=== PATIENT | male | born 1980 | race Two or more races ===

== ENCOUNTER 2019-06-06 08:00 | Outpatient (CLI) | payer BC ==
[2019-06-06 12:30] LABS: BASOPHILS # (AUTO) 0.1 10^3/uL (0.0-0.1); BASOPHILS % (AUTO) 0.8 %; EOSINOPHILS # (AUTO) 0.4 10^3/uL (0.0-0.7); EOSINOPHILS % (AUTO) 5.1 %; HGB - HEMOGLOBIN 13.5 g/dL (14.0-18.0); LYMPHOCYTES # (AUTO) 2.5 10^3/uL (1.5-3.5); MEAN CORPUSCULAR VOLUME 93.8 fL (80.0-94.0); MEAN PLATELET VOLUME 12.1 fL (7.4-11.4); MONOCYTES # (AUTO) 0.6 10^3/uL (0.0-1.0); MONOCYTES % (AUTO) 7.7 %; NEUTROPHILS # (AUTO) 3.8 10^3/uL (1.5-6.6); NEUTROPHILS % (AUTO) 52.1 %; PLT - PLATELET COUNT 214 10^3/uL (130-450); RED BLOOD COUNT 4.65 10^6/uL (4.70-6.10); WHITE BLOOD COUNT 7.3 x10^3/uL (4.8-10.8)
[2019-06-06 12:34] LABS: ALBUMIN 4.4 g/dL (3.2-5.5); ALBUMIN/GLOBULIN RATIO 1.3 (1.0-2.2); ALKALINE PHOSPHATASE 55 IU/L (42-121); ALT ALANINE AMINOTRANSFERASE 22 IU/L (10-60); AST ASPARTATE AMINOTRANSFERASE 24 IU/L (10-42); BILIRUBIN,TOTAL 0.9 mg/dL (0.2-1.0); BUN - BLOOD UREA NITROGEN 13 mg/dL (6-20); CALCIUM 9.2 mg/dL (8.5-10.3); CARBON DIOXIDE - CO2 28 mmol/L (21-32); CHLORIDE 103 mmol/L (101-111); CHOL/HDL RATIO 5.2 (<5.0); CHOLESTEROL 191 mg/dL; CREATININE 1.1 mg/dL (0.6-1.2); GFR - MDRD 75 (>89); GLUCOSE 96 mg/dL (70-100); HDL CHOLESTEROL 37 mg/dL; LDL CHOLESTEROL,CALCULATED 133 mg/dL; LDL/HDL RATIO 3.6 (<3.6); SODIUM 140 mmol/L (135-145); TOTAL PROTEIN 7.9 g/dL (6.7-8.2); VLDL CHOLESTEROL 21 mg/dL
== END 2019-06-06 23:59 | disposition home or self-care (01) ==
LOC: LAB.WCP 08:00
PROVIDERS: ATTEND Family Medicine
DX: Z00.00 Encounter for general adult medical examination without abnormal findings (principal); R03.0 Elevated blood-pressure reading, without diagnosis of hypertension; E66.9 Obesity, unspecified
CPT/HCPCS: 36415; 80053; 80061; 83721; 84443; 85025

== ENCOUNTER 2023-05-04 10:43 | Outpatient (CLI) | payer BC ==
--- NOTE | 2023-05-04 11:24 | Sleep Patient Instructions ---
Sleep Center Visit Summary - Patient Visit Information Reason for Visit: Initial consult for evaluation of sleep disordered breathing and other sleep issues. - Patient Instructions Instructions Attached: Sleep Study, Sleep Clinic Visit, Sleep Study Home Monitor Additional Instructions: You will be completing a sleep study, either an in-lab polysomnography (PSG) or home sleep study (HST). You will follow-up in the sleep care office after the sleep study is completed to hear the results and talk about therapy, if needed. You will be called by our office staff to schedule this appointment, but you may contact us with any questions. - Clinic Information Contact: [facility] [address] [place] [address] [email or web address] T: [phone]
--- NOTE | 2023-05-04 11:29 | SLEEP CARE CONSULTATION ---
Information from patient questionnaire entered by Suze Lombardo. I have reviewed and concur with the information entered by Suze Lombardo. This document represents the service I personally performed and the decisions made by me, Lesia Toribio ARNP. History of Present Illness Service Date and Time: 05/04/2023 1043 Reason for Visit: New patient, Previously diagnosed sleep apnea Chief Complaint: reports: Insomnia, Unrefreshed sleep, Snoring, Excessive daytime sleepiness, Observed pauses in breathing, Fatigue Date of Onset: 10-15YRS Usual bedtime: RANDOM, tries to lay down at 9 PM Time it takes to fall asleep: 01-60MINS Snores at night: Yes Observed to quit breathing while asleep: Yes Sleeps alone due to snoring: No Number of times waking at night: 0 Reasons for waking at night: reports: Choking, Snoring, Other (NOISE, light sleeper). denies: Gasping for air Toss, Turn, or Twitch while sleeping: No Recalls having dreams: Yes Usually gets out of bed at: 8812-5905 M-F; weekends is random Feels refreshed in the morning: No (sometimes he can) Morning headache: Yes (when sleeps for more than 8 hours; once a week on avg/weekend) Sleepy or fatigued during the day: Yes Ever fallen asleep while driving: Yes (drowsy driving, no accidents; pulls over if drowsy) Takes day naps: Yes (2 times a week for 30 minutes) Dreams during day naps: Yes Prior sleep studies: Yes Year and Where: 2020 [facility] Type of Sleep Study: Home sleep study Additional HPI information: I had the pleasure of seeing FREDO CHOW today regarding the possibility of him having a sleep disorder. He has had a previous sleep study dated 06/29/2021 which showed mild JOB with an AHI of 10.5 through [facility]. His current complaints are excessive daytime sleepiness, fatigue, insomnia, observed pauses in breathing, snoring and unrefreshed sleep. He was resent by his doctor because his blood pressure is elevated even on medications. He states he goes to sleep at random times, he will either fall asleep quickly or it may take several hours to go to sleep. He may sometimes be up for 36-48 hours before being able to go to sleep. He will then sleep on weekends for 18 hours. He lays down at 9 pm at night. He gets really sleepy after eating and will sometimes avoid eating at work to reduce sleepiness. He states once he was talking with people at work and he like "breathed out snoring" like when asleep. He has experienced multiple times of drowsy driving. 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 Patient is and lives in [place]. Have you smoked in the past 12 months: No Alcohol use: Yes Alcohol amount and frequency: 1-3, 2-3 TIMES A YEAR Caffeine use: Yes Caffeine amount and frequency: 2-4 DAILY Family History Family history of sleep disordered breathing: Yes Family Hx Sleep Apnea: Father: Snoring, Sleep apnea - Untreated, Grandparent: Snoring, Sleep apnea - Untreated Allergies and Home Medications Known drug allergies: No Drug allergies reviewed: Yes Home medication list reviewed: Yes Allergy and home medication list: Allergies No Known Drug Allergies Allergy (Verified 05/04/23 10:59) Home Medications Losartan Potassium See Rx Instructions .ROUTE .COMPLEX 05/04/23 [History] Metoprolol Succinate [Toprol Xl] See Rx Instructions .ROUTE .COMPLEX 05/04/23 [History] Review of Systems Weight gain over past 5 years: 30 Cardiovascular: reports: high blood pressure, chest pain, leg or foot swelling Respiratory: reports: sputum production Gastrointestinal: denies: heartburn Neurological: denies: headaches Psychiatric: reports: depression, mood disorder Ear/Nose/Throat: reports: nasal congestion, sinus problems, nose bleeds, wisdom teeth removed. denies: tonsillectomy Endocrine: reports: sluggishness Musculoskeletal: reports: joint pain, back pain Immunologic: reports: itching Physical Exam Vital signs obtained and entered by: SUZE Mendez MA Blood Pressure: 134/92 (LEFT ARM) Cuff size: long Heart Rate: 71 O2 Saturation: 94 Height: 6 ft 4 in Weight: 327 lb 9.6 oz Body Mass Index: 39.9 BMI Classification: Obese Neck circumference: 19 Mouth and throat: narrow oropharynx Soft palate: long Hard palate: normal Uvula: normal Uvula visualization: 0% Mallampati Class IV Tongue: enlarged in size with teeth hurst on lateral edges Tonsils: 1+ Neck: normal w/o lymphadenopathy or thyromegaly Heart: regular rate and rhythm Lungs: clear bilaterally Impression and Plan 1. Suspected Obstructive Sleep Apnea-Hypopnea Syndrome, as previously diagnosed and as still suggested by a history of loud and irregular snoring, observed cessation of breath while asleep, choking in sleep, morning headache, unrefreshed sleep, and excessive daytime sleepiness. He was told his sleep apnea was borderline and was not placed on treatment. His symptoms of daytime sleepiness and fatigue are worsening and his blood pressure is not well controlled. I recommend proceeding to polysomnography to confirm the diagnosis and to assess severity. If the patient has significant sleep disordered breathing, a manual CPAP titration study will also be performed to find the optimal treatment pressure. I informed the patient of what the sleep studies involve and after some discussion, obtained agreement to proceed. The pathophysiology of obstructive sleep apnea-hypopnea syndrome was discussed with the patient and health risks of cardiovascular and cerebrovascular disease if not treated. Risks of drowsy driving discussed in detail and patient advised to avoid long distance driving and to well puller head at the first sign of drowsiness. Patient agreed to plan. * Schedule polysomnography. * Avoid long distance driving or driving when feeling sleepy. * Avoid alcohol, sedative and muscle relaxant around bedtime. * Attempt to lose weight. * Review instructions provided by trained office staff on how to prepare for the sleep study. * Return for follow-up after sleep study completed. Counseling Topics: Weight loss health impact Visit Type: In Office Time Spent with Patient (minutes): 32 Provider Statement: I spent 100% of the Face to Face Visit with the patient with greater than 50% spent counseling the patient and coordination of care.
[2023-05-04 11:33] VITALS: BP 134/92; O2SAT 94
== END 2023-05-04 10:44 | disposition home or self-care (01) ==
LOC: SC 10:43
PROVIDERS: ATTEND Nurse Practitioner Family
DX: G47.33 Obstructive sleep apnea (adult) (pediatric) (principal)
CPT/HCPCS: 99203; 99212

== ENCOUNTER 2023-06-17 20:24 | Outpatient (CLI) | payer BC | END 2023-06-17 20:25 | disposition home or self-care (01) | LOC: SC 20:24 | PROVIDERS: ATTEND Nurse Practitioner Family | DX: G47.33 Obstructive sleep apnea (adult) (pediatric) (principal); E66.9 Obesity, unspecified; Z68.39 Body mass index [BMI] 39.0-39.9, adult | CPT/HCPCS: 95810 ==

== ENCOUNTER 2023-07-20 14:50 | Outpatient (CLI) | payer BC ==
[2023-07-20 17:56] LABS: BASOPHILS % (AUTO) 0.5 %; EOSINOPHILS # (AUTO) 0.2 10^3/uL (0.0-0.7); EOSINOPHILS % (AUTO) 2.4 %; HCT - HEMATOCRIT 44.1 % (42.0-52.0); HGB - HEMOGLOBIN 13.9 g/dL (14.0-18.0); LYMPHOCYTES # (AUTO) 2.2 10^3/uL (1.5-3.5); LYMPHOCYTES % (AUTO) 27.3 %; MEAN CORPUSCULAR HEMOGLOBIN 30.6 pg (27.0-31.0); MEAN CORPUSCULAR HGB CONC 31.5 g/dL (32.0-36.0); MEAN CORPUSCULAR VOLUME 97.1 fL (80.0-94.0); MEAN PLATELET VOLUME 12.1 fL (7.4-11.4); MONOCYTES # (AUTO) 0.6 10^3/uL (0.0-1.0); MONOCYTES % (AUTO) 7.5 %; NEUTROPHILS # (AUTO) 4.9 10^3/uL (1.5-6.6); PLT - PLATELET COUNT 262 10^3/uL (130-450); RED BLOOD COUNT 4.54 10^6/uL (4.70-6.10); RED CELL DISTRIBUTION WIDTH 12.5 % (12.0-15.0); WHITE BLOOD COUNT 7.9 x10^3/uL (4.8-10.8)
[2023-07-20 18:11] LABS: ALBUMIN 4.6 g/dL (3.2-5.5); ALBUMIN/GLOBULIN RATIO 1.7 (1.0-2.2); ALKALINE PHOSPHATASE 59 IU/L (42-121); ALT ALANINE AMINOTRANSFERASE 19 IU/L (10-60); AST ASPARTATE AMINOTRANSFERASE 20 IU/L (10-42); BILIRUBIN,TOTAL 1.3 mg/dL (0.2-1.0); BUN - BLOOD UREA NITROGEN 12 mg/dL (6-20); CARBON DIOXIDE - CO2 31 mmol/L (21-32); CHLORIDE 100 mmol/L (101-111); CHOL/HDL RATIO 5.1 (<5.0); CHOLESTEROL 174 mg/dL; CREATININE 1.1 mg/dL (0.6-1.3); GFR - MDRD 73 (>89); GLUCOSE 83 mg/dL (74-104); HDL CHOLESTEROL 34 mg/dL; LDL CHOLESTEROL,CALCULATED 101 mg/dL; POTASSIUM 3.9 mmol/L (3.5-4.5); SODIUM 137 mmol/L (135-145); TOTAL PROTEIN 7.3 g/dL (6.4-8.9); TRIGLYCERIDES 196 mg/dL (48-352); VLDL CHOLESTEROL 39 mg/dL
[2023-07-20 18:23] LABS: THYROID STIMULATING HORMONE 1.85 uIU/mL (0.34-5.60)
[2023-07-20 20:04] LABS: ESTIMATED AVERAGE GLUCOSE 103 mg/dL (70-100); HEMOGLOBIN A1c% 5.2 % (4.27-6.07)
== END 2023-07-20 14:51 | disposition home or self-care (01) ==
LOC: LAB.N 14:50
PROVIDERS: ATTEND Internal Medicine
DX: I10 Essential (primary) hypertension (principal); Z13.220 Encounter for screening for lipoid disorders; R73.01 Impaired fasting glucose; F43.20 Adjustment disorder, unspecified; M10.072 Idiopathic gout, left ankle and foot; L50.2 Urticaria due to cold and heat
CPT/HCPCS: 36415; 80053; 80061; 82043; 82570; 83036; 83721; 84443; 84550; 85025

== ENCOUNTER 2023-09-14 15:37 | Outpatient (CLI) | payer BC ==
--- NOTE | 2023-09-14 16:14 | Sleep Patient Instructions ---
Sleep Center Visit Summary - Patient Visit Information Reason for Visit: First compliance visit for PAP therapy - Patient Instructions Additional Instructions: You were here for follow up of CPAP therapy. You will be continued on CPAP therapy with pressure at 6-10 cmH2O. Please let us know if the pressure change is uncomfortable and we can make further adjustments of the pressure. You should follow up with sleep care in 1-2 months. You may contact us sooner for any questions or concerns. - Clinic Information Contact: [facility] [address] [place] [address] [email or web address] T: [phone]
--- NOTE | 2023-09-14 16:18 | SLEEP CARE CONSULTATION ---
Information from patient questionnaire entered by Suze Lombardo. I have reviewed and concur with the information entered by Suze Lombardo. This document represents the service I personally performed and the decisions made by , Lesia Toribio ARNP. History of Present Illness Service Date and Time: 09/14/2023 1537 Previous diagnosis: Mild, Obstructive Sleep Apnea-Hypopnea Syndrome AHI: 12.2 (05/2023) Reason for follow up: first compliance Equipment type: CPAP (RESMED Airsense 11, s/u 06/2023) Equipment obtained from: Other ([facility]; getting supplies) Mask style: Nasal (over the nose) Backup mask available: No (will keep old mask when replaced) Last cushion change: last week Prior sleep studies: Yes Year and Where: 2020 [facility] Type of Sleep Study: Polysomnography (COMPLETED 06/17/23) HPI additional information: FREDO CHOW was diagnosed to have mild, AHI 12.2, obstructive sleep apnea- hypopnea syndrome and returned today for CPAP therapy first compliance follow- up. Sleep Study - Results Type of Sleep Study: Polysomnography (COMPLETED 06/17/23) Prior sleep studies: Yes Year and Where: 2020 [facility] CPAP Compliance Data - Data Reviewed with Patient Average duration of nightly device use: 5 HRS 4 MINS Compliance rate %: 53 (08/14/23-09/12/23; days used) Current pressure setting (cmH2O): 4-15 (median 6.7, avg 9.3, max 10.2) Average residual AHI: 0.5 Central apnea: 0 Obstructive apnea: 0.3 Average large leak: 7.6 L/min Subjective Missed days of use due to: reports: mask issues, other (Work Schedule) Patient concerns: reports: condensation in mask/hose (in mask; making adjustments with some improvement). denies: aerophagia, mask discomfort, air blowing in eyes, mask leak noise, nasal congestion, dry mouth, nose, throat, epistaxis Observed to snore while using device: No Current pressure setting perceived as: comfortable On therapy, patient: reports: sleeping better, awakening more refreshed, being more awake and alert during the day, more rested overall. denies: drowsiness while driving Initial [place] Sleepiness Scale score: 16 (05/04/23) Current [place] Sleepiness Scale score: 7 (09/14/23) Allergies and Home Medications Known drug allergies: No Drug allergies reviewed: Yes Home medication list reviewed: Yes (new dose) Allergy and home medication list: Allergies No Known Drug Allergies Allergy Home Medications Medication Instructions Recorded Confirmed Last Taken Type Losartan Potassium See Rx Instructions .ROUTE .COMPLEX 05/04/23 09/14/23 Unknown History Metoprolol Succinate [Toprol Xl] See Rx Instructions .ROUTE .COMPLEX 05/04/23 09/14/23 Unknown History Review of Systems Review of systems same as previous: Yes (NO CHANGE) Physical Exam Vital signs obtained and entered by: SUZE Mendez MA Blood Pressure: 146/99 (RIGHT ARM) Cuff size: regular Heart Rate: 73 O2 Saturation: 98 Height: 6 ft 4 in Weight: 325 lb 9.6 oz Weight change since last visit: 5 lb loss Body Mass Index: 39.6 BMI Classification: Obese Impression and Plan 1. Obstructive Sleep Apnea-Hypopnea Syndrome, mild, with fair treatment compliance and good apnea control. On CPAP therapy, the patient has better sleep quality and is more rested overall. The patients pressure will be changed to autoCPAP 6-10 cmH20 to reflect pressure being used. He also says the pressure feels low when he first puts the mask on. I will adjust his ramp starting pressure to 5 cmH2O. Patient advised to contact me if pressure change is uncomfortable so that it can be adjusted. Goals for apnea control discussed. Patient's apnea severity and rationale for treatment to reduce apnea, improve sleep quality and reduce cardiovascular and cerebrovascular events was reviewed. I also reviewed the benefit of consistent device use of CPAP for hypertension, depression and PTSD. 2. Obesity, unspecified. Currently patients BMI is 39.6. He has lost weight. Obesity increases the risk of apnea, CPAP pressure requirements and overall health risks especially cardiovascular and diabetes. Thus patient is advised to lose weight. * Change auto CPAP pressure to 6-10 cmH2O * Increase ramp starting pressure to 5 cmH2O * Notify me if snoring with mask or feeling that the pressure is too much or too little * Attempt to lose weight * Call this office if any problems using CPAP * Return for follow up in 1-2 months, or sooner if concerns arise Counseling Topics: Spare mask, Weight loss health impact Follow up with Sleep Care in: 1-2 months Visit Type: In Office Time Spent with Patient (minutes): 25 Provider Statement: I spent 100% of the Face to Face Visit with the patient with greater than 50% spent counseling the patient and coordination of care.
[2023-09-14 16:26] VITALS: BP 146/99; O2SAT 98
== END 2023-09-14 15:38 | disposition home or self-care (01) ==
LOC: SC 15:37
PROVIDERS: ATTEND Nurse Practitioner Family
DX: G47.33 Obstructive sleep apnea (adult) (pediatric) (principal); E66.9 Obesity, unspecified; Z68.39 Body mass index [BMI] 39.0-39.9, adult
CPT/HCPCS: 99212; 99213

== ENCOUNTER 2023-11-15 15:11 | Outpatient (CLI) | payer BC ==
--- NOTE | 2023-11-15 15:37 | Sleep Patient Instructions ---
Sleep Center Visit Summary - Patient Visit Information Reason for Visit: 2 month follow up - Patient Instructions Additional Instructions: You were here for follow up of CPAP therapy. You will be continued on CPAP therapy with pressure at 6-10 cmH2O. I have written an order for the machine to be serviced to check on the heating system error you have been getting. You should follow up with sleep care in 3 months. You may contact us sooner for any questions or concerns. - Clinic Information Contact: [facility] [address] [place] [address] [email or web address] T: [phone]
--- NOTE | 2023-11-15 15:43 | SLEEP CARE CONSULTATION ---
Information from patient questionnaire entered by Suze Lombardo. I have reviewed and concur with the information entered by Suze Lombardo. This document represents the service I personally performed and the decisions made by , Lesia Toribio ARNP. History of Present Illness Service Date and Time: 11/15/2023 1511 Previous diagnosis: Mild, Obstructive Sleep Apnea-Hypopnea Syndrome AHI: 12.2 (05/2023) Reason for follow up: other (2MONTH F/U) Equipment type: CPAP (RESMED Airsense 11, s/u 06/2023) Equipment obtained from: Other ([facility]; getting supplies) Mask style: Nasal (over the nose) Backup mask available: No Last cushion change: 4 days ago Prior sleep studies: Yes Year and Where: 2020 [facility] Type of Sleep Study: Polysomnography (COMPLETED 06/17/23) HPI additional information: FREDO CHOW was diagnosed to have mild, AHI 12.2, obstructive sleep apnea- hypopnea syndrome and returned today for CPAP therapy 2 month follow-up. Sleep Study - Results Type of Sleep Study: Polysomnography (COMPLETED 06/17/23) Prior sleep studies: Yes Year and Where: 2020 [facility] CPAP Compliance Data - Data Reviewed with Patient Average duration of nightly device use: 5 HRS 8 MINS Compliance rate %: 70 (10/16/2023-11/14/2023; days used) Current pressure setting (cmH2O): 6-10 Average residual AHI: 0.3 Central apnea: 0 Obstructive apnea: 0.2 Hypopnea: 0.1 Average large leak: 8.8 L/min Subjective Missed days of use due to: reports: other (Work schedule; stressed that he will sleep through his alarm) Patient concerns: reports: nasal congestion. denies: aerophagia, mask discomfort, air blowing in eyes, mask leak noise, condensation in mask/hose, dry mouth, nose, throat (only with CPAP; humidifier is not working), epistaxis Observed to snore while using device: No Current pressure setting perceived as: comfortable On therapy, patient: reports: sleeping better (and longer), awakening more refreshed, being more awake and alert during the day, more rested overall. denies: drowsiness while driving Initial [place] Sleepiness Scale score: 16 (05/04/23) Current [place] Sleepiness Scale score: 6 (11/15/23) Allergies and Home Medications Known drug allergies: No Drug allergies reviewed: Yes Home medication list reviewed: Yes (no changes) Allergy and home medication list: Allergies No Known Drug Allergies Allergy (Verified 11/11/23 15:14) Review of Systems Review of systems same as previous: Yes (NO CHANGE) Physical Exam Vital signs obtained and entered by: SUZE Mendez MA Blood Pressure: 141/91 (LEFT ARM) Cuff size: regular Heart Rate: 75 O2 Saturation: 98 Height: 6 ft 4 in Weight: 330 lb 12.8 oz Body Mass Index: 40.2 BMI Classification: Morbidly Obese Impression and Plan 1. Obstructive Sleep Apnea-Hypopnea Syndrome, mild, with good treatment compliance and good apnea control. On CPAP therapy, the patient has better sleep quality and is more rested overall. He has been getting an error message about his "heating system error" but his machine continues to work fine. However, he is having more nasal congestion and the water in his water chamber is not always being used. He says otherwise he has had no issues other than [facility] calling about his non-compliance and then 4 days later telling him he has reached his compliance goal. He is comfortable with using his CPAP and denies any other issues today. Patient's apnea severity and rationale for treatment to reduce ap analilia, improve sleep quality and reduce cardiovascular and cerebrovascular events was reviewed. I also reviewed the benefit of consistent device use of CPAP for hypertension, depression and mood disorder (PTSD). 2. Obesity, unspecified. Currently patients BMI is 40.2. Obesity increases the risk of apnea, CPAP pressure requirements and overall health risks especially cardiovascular and diabetes. Thus patient is advised to lose weight. * Continue auto CPAP pressure at 6-10 cmH2O * Service machine: error - "heating system error" * Notify me if snoring with mask or feeling that the pressure is too much or too little * Attempt to lose weight * Call this office if any problems using CPAP * Return for follow up in 3 months, or sooner if concerns arise Counseling Topics: Weight loss health impact Prescriptions: Other (service machine) Follow up with Sleep Care in: 3 months Visit Type: In Office Time Spent with Patient (minutes): 23 Provider Statement: I spent 100% of the Face to Face Visit with the patient with greater than 50% spent counseling the patient and coordination of care.
[2023-11-15 15:44] VITALS: BP 141/91; O2SAT 98
== END 2023-11-15 15:12 | disposition home or self-care (01) ==
LOC: SC 15:11
PROVIDERS: ATTEND Nurse Practitioner Family
DX: G47.33 Obstructive sleep apnea (adult) (pediatric) (principal); E66.01 Morbid (severe) obesity due to excess calories; Z68.41 Body mass index [BMI] 40.0-44.9, adult
CPT/HCPCS: 99212; 99213

== ENCOUNTER 2024-01-14 09:27 | Outpatient (CLI) | payer BC ==
[2024-01-14 20:23] LABS: CALCIUM 9.7 mg/dL (8.5-10.3); CREATININE 1.2 mg/dL (0.6-1.3); POTASSIUM 3.9 mmol/L (3.5-4.5)
[2024-01-14 20:43] LABS: PROLACTIN 9.23 ng/mL
== END 2024-01-14 09:28 | disposition home or self-care (01) ==
LOC: LAB.N 09:27
PROVIDERS: ATTEND Internal Medicine
DX: M10.072 Idiopathic gout, left ankle and foot (principal); R68.82 Decreased libido
CPT/HCPCS: 36415; 80048; 83002; 84146; 84403

== ENCOUNTER 2024-01-28 11:18 | Outpatient (CLI) | payer BC | END 2024-01-28 11:19 | disposition home or self-care (01) | LOC: LAB.N 11:18 | PROVIDERS: ATTEND Internal Medicine | DX: R68.82 Decreased libido (principal) | CPT/HCPCS: 36415; 84403 ==

== ENCOUNTER 2024-02-15 14:07 | Outpatient (CLI) | payer BC ==
--- NOTE | 2024-02-15 15:06 | Sleep Patient Instructions ---
Sleep Center Visit Summary - Patient Visit Information Reason for Visit: 3-month follow-up - Patient Instructions Additional Instructions: You were here for follow up of CPAP therapy. You will be continued on CPAP therapy with pressure at 6-10 cmH2O. You should follow up with sleep care in 6 months. You may contact us sooner for any questions or concerns. - Clinic Information Contact: [facility] [address] [place] [address] [email or web address] T: [phone]
--- NOTE | 2024-02-15 15:08 | SLEEP CARE CONSULTATION ---
Information from patient questionnaire entered by Suze Lombardo. I have reviewed and concur with the information entered by Suze Lombardo. This document represents the service I personally performed and the decisions made by me, Lesia Toribio ARNP. History of Present Illness Service Date and Time: 02/15/2024 1407 Previous diagnosis: Mild, Obstructive Sleep Apnea-Hypopnea Syndrome AHI: 12.2 (05/2023) Reason for follow up: three month (F/U) Equipment type: CPAP (RESMED Airsense 11, s/u 06/2023) Equipment obtained from: Other ([facility]; getting supplies) Mask style: Nasal (over the nose) Backup mask available: No Last cushion change: 2.5 weeks ago Prior sleep studies: Yes Year and Where: 2020 [facility] Type of Sleep Study: Polysomnography (COMPLETED 06/17/23) HPI additional information: FREDO COHW was diagnosed to have mild, AHI 12.2, obstructive sleep apnea- hypopnea syndrome and returned today for CPAP therapy three month follow-up. Sleep Study - Results Type of Sleep Study: Polysomnography (COMPLETED 06/17/23) Prior sleep studies: Yes Year and Where: 2020 [facility] CPAP Compliance Data - Data Reviewed with Patient Average duration of nightly device use: 5 HRS 40 MINS Compliance rate %: 77 (11/15/23-02/12/24; 79/90 days used) Current pressure setting (cmH2O): 6-10 Average residual AHI: 0.3 Central apnea: 0 Obstructive apnea: 0.2 Hypopnea: 0.1 Average large leak: 9.8 L/min Compliance data discussion: He says his humidifier stopped working for about a week and he let [facility] know. They checked it remotely and said they would get him a new machine but they have not yet done this. He says about a week later the humidifier started working again. Subjective Missed days of use due to: reports: other (humidifier not working) Patient concerns: denies: aerophagia, mask discomfort, air blowing in eyes, mask leak noise, condensation in mask/hose, nasal congestion, dry mouth, nose, throat, epistaxis Observed to snore while using device: No Current pressure setting perceived as: comfortable On therapy, patient: reports: sleeping better, awakening more refreshed, being more awake and alert during the day, more rested overall. denies: drowsiness while driving Initial [place] Sleepiness Scale score: 16 (05/04/23) Current [place] Sleepiness Scale score: 9 (02/15/24) Allergies and Home Medications Known drug allergies: No Drug allergies reviewed: Yes Home medication list reviewed: Yes (Gabapentin; Testosterone 50 mg daily) Allergy and home medication list: Allergies No Known Drug Allergies Allergy (Verified 02/13/24 11:27) Review of Systems Review of systems same as previous: Yes (NO CHANGE) Physical Exam Vital signs obtained and entered by: SUZE Mendez MA Blood Pressure: 126/75 (RIGHT ARM) Cuff size: long Heart Rate: 99 O2 Saturation: 95 Height: 6 ft 4 in Weight: 331 lb 12.8 oz Body Mass Index: 40.4 BMI Classification: Morbidly Obese Impression and Plan 1. Obstructive Sleep Apnea-Hypopnea Syndrome, mild, with good treatment com pliance and good apnea control. On CPAP therapy, the patient has better sleep quality and is more rested overall. He has significant improvement of his sleep apnea and is satisfied with the CPAP therapy. He has not yet heard back from his DME supplier about changing out the machine since the humidifier stopped working for a week. I encouraged him to reach out to them to find out where that process is to replace his machine. If he is unable to get a hold of anyone or gets no response, I encouraged him to call the office so that we can assist him. He voiced understanding. Patient's apnea severity and rationale for treatment to reduce apnea, improve sleep quality and reduce cardiovascular and cerebrovascular events was reviewed. I also reviewed the benefit of consistent device use of CPAP for hypertension, depression and mood disorder (PTSD). 2. Obesity, unspecified. Currently patients BMI is 40.4. Obesity increases the risk of apnea, CPAP pressure requirements and overall health risks especially cardiovascular and diabetes. Thus patient is advised to lose weight. * Continue auto CPAP pressure at 6-10 cmH2O * Notify me if snoring with mask or feeling that the pressure is too much or too little * Attempt to lose weight * Call this office if any problems using CPAP * Return for follow up in 6 months, or sooner if concerns arise Counseling Topics: Spare mask, Weight loss health impact Follow up with Sleep Care in: 6 months Visit Type: In Office Time Spent with Patient (minutes): 13 Provider Statement: I spent 100% of the Face to Face Visit with the patient with greater than 50% spent counseling the patient and coordination of care.
[2024-02-15 15:16] VITALS: BP 126/75; O2SAT 95
== END 2024-02-15 14:08 | disposition home or self-care (01) ==
LOC: SC 14:07
PROVIDERS: ATTEND Nurse Practitioner Family
DX: G47.33 Obstructive sleep apnea (adult) (pediatric) (principal); E66.01 Morbid (severe) obesity due to excess calories; Z68.41 Body mass index [BMI] 40.0-44.9, adult
CPT/HCPCS: 99212